=== PATIENT | male | born 1955 ===

== ENCOUNTER 2024-10-09 06:19 | Day surgery (SDC) | payer OTHER, SELFPAY | END 2024-10-09 08:24 | disposition home or self-care (01) | LOC: GI 06:19 | PROVIDERS: ATTENDING PHYSICIAN Internal Medicine Gastroenterology | DX: Z12.11 Encounter for screening for malignant neoplasm of colon (principal); D12.2 Benign neoplasm of ascending colon; K57.30 Diverticulosis of large intestine without perforation or abscess without bleeding; K64.8 Other hemorrhoids; Z86.0100 Personal history of colon polyps, unspecified | CPT/HCPCS: 45385; 88305 ==

== ENCOUNTER 2025-02-13 12:55 | Emergency (ER) | payer OTHER, SELFPAY ==
[2025-02-13 13:08] VITALS: BP 145/90
[2025-02-13 13:44] LABS: Hematocrit 42.6 % (39.0-52.0); Hemoglobin 14.3 g/dL (13.0-18.0); Mean Corp Hgb Conc. 33.6 g/dL (33.0-37.0); Mean Corpuscular Volume 85.7 fL (80.0-94.0); Nucleated Red Blood Cells % 0 % (-); Platelet Count 238 10^3/uL (130-400); Red Cell Dist. Width 12.8 % (11.5-14.5)
[2025-02-13 14:04] LABS: ALT (SGPT) 24 U/L (0-50); AST (SGOT) 23 U/L (17-59); Albumin 4.5 g/dl (3.5-5.0); Alkaline Phosphatase 58 U/L (38-126); Blood Urea Nitrogen 16 mg/dl (9-20); Calcium 9.3 mg/dl (8.4-10.2); Carbon Dioxide 25 mmol/L (22-30); Chloride 105 mmol/L (98-107); Glucose 98 mg/dl (70-99); Potassium 4.2 mmol/L (3.5-5.1); Sodium 138 mmol/L (135-145); Total Protein 6.7 g/dl (6.3-8.2); eGFR > 60.00
[2025-02-13 14:09] LABS: Troponin I < 0.012 ng/ml
[2025-02-13 15:30] VITALS: BP 158/91
--- NOTE | 2025-02-13 18:19 | ED.GENMED ---
History of Present Illness
General
Chief Complaint: Weakness
Source: patient
Exam Limitations: none
Time Seen by Provider: 02/13/25 17:49
Nursing documentation reviewed up to this point in time: agreed with
History of Present Illness
History of Present Illness:
Patient to the emergency department with complaint of pain to left axilla. States he noticed pain approximately 1 week ago. Reports that he is active and is currently participating in water aerobics, tennis. States pain is worse with movement.
Pain radiates to her left nipple. Describes pain as sharp. No associated N/V/diaphoresis. No associated shortness of breath. Denies headache dizziness or lightheadedness. He was evaluated by family practitioner earlier today and was advised to
come to the emergency department for further evaluation. He reports feeling fatigued. Denies fever/chills/recent illness, no cough
Past History
Past History
ED Past Medical History: HTN and Hypercholesterolemia
Review of Systems
Review of Systems
Allergies reviewed?: Yes
All Other Systems: ROS reviewed and negative except as documented in HPI and ROS
Constitutional: Reports no symptoms
EENT: Reports no symptoms
Respiratory: Reports no symptoms
Cardiac: Reports other (Pain to left axilla radiating to left nipple)
ABD/GI: Reports no symptoms
: Reports no symptoms
Musculoskeletal: Reports other (Pain to left axilla)
Skin: Reports no symptoms
Neurological: Reports no symptoms
Psychiatric: Reports no symptoms
Phy Exam
General Physical Exam
General Presentation: well appearing and no apparent distress
General age: appears stated age
General Skin: warm and dry
General Habitus: normal
General Mental: alert
Cardiovascular Exam
Cardiovascular Exam: regular rate/rhythm and no edema
Pulmonary Exam
Pulmonary Exam: lungs clear and no respiratory distress
Musculoskeletal Exam
Musculoskeletal Exam: full ROM, neuro vasc intact and other (Pain at left axilla. Pain is reproducible. No lymphadenopathy noted he has full range of motion to left upper extremity. No erythema or swelling noted)
Skin Exam
Skin Exam: normal color, warm/dry and no rash
Psychiatric Exam
Psychiatric Exam: normal mood/affect
Course
Orders/Labs/Results
Orders:
Orders
02/13/25 12:59
Electrocardiogram (*1) Urgent
Reason for Study: Chest Pain
EKG- Treatment ONCE
02/13/25 13:24
Complete Blood Count/With Diff Urgent
Comprehensive Metabolic Panel Urgent
Troponin I Urgent
02/13/25 13:24
02/13/25 13:24
Vital Signs
Initial and Last Documented VS:
Initial Vital Signs
Temp Pulse Resp BP Pulse Ox
98.4 F 70 20 145/90 98
02/13/25 13:08 02/13/25 13:08 02/13/25 13:08 02/13/25 13:08 02/13/25 13:08
Last Documented Vital Signs
Temp Pulse Resp BP Pulse Ox
97.9 F 63 15 158/91 97
02/13/25 15:30 02/13/25 17:00 02/13/25 16:50 02/13/25 15:30 02/13/25 18:20
*Pulse Oximetry
SaO2: 97
Oxygen Mode of Delivery: Room air
Patient hypoxic: no
*Critical Care Note
Total Time (30-74mins, 75-104mins- exclusive of procedures): Not Applicable
Update Note
Update Note:
Patient to the emergency department for evaluation of pain to left axilla radiating to the left nipple. Pain is reproducible. She has no associated shortness of breath nausea vomiting diaphoresis dizziness blurred vision. VSS. He remains
afebrile. Labs reviewed. No concerning findings. Troponin is negative. EKG NSR. Doubtful for ACS. He has a cardiology appointment scheduled on Wednesday and he is agreeable to keeping this planned appointment. He is discharged home given strict
instructions on signs and symptoms to return to the emergency department. He is agreeable to this plan.
ED Attending Note
-
Portions of this chart may have been created with voice recognition software.� Occasional wrong word or��sound alike� substitutions may have occurred due to the inherent limitations of voice recognition software.
Discharge Plan
Departure
Patient Disposition: Home (Routine Discharge)
Date of Disposition: 02/13/25
Time of Disposition: 18:12
Patient with high blood pressure during this ER visit?: No
Condition: Good
Covid-19: Not Applicable
Discharge Problem:
Left axillary pain
Instructions: BLOOD PRESSURE, Musculoskeletal Pain
Referrals:
Eron Hernandez DO [Family Provider, Family Practice]
Activity Restrictions/Additional Instructions:
Follow-up with your filbert grower on Wednesday as scheduled. Return to the emergency department immediately for any changes in/worsening of your symptoms
Interventions
Interventions:
*Risk Screen - Suicide Last Done: 02/13/25 13:08
*General Assessment Last Done: 02/13/25 13:08
*Neglect/Abuse Screening Last Done: 02/13/25 13:08
*ED- Fall Risk Assessment Last Done: 02/13/25 18:20
*ED COVID-19 Vaccine History Last Done: 02/13/25 17:14
*ED Influenza Vaccine History Last Done: 02/13/25 17:14
*Nursing Disposition Last Done: 02/13/25 18:20
ED- Cardiac Assessment Last Done: 02/13/25 17:51
ED- Neurological Assessment Last Done: 02/13/25 17:51
ED- Pulmonary Assessment Last Done: 02/13/25 17:51
Discharge Date and Time
Discharge Date/Time: 02/13/25 18:24
Print Language: JAPANESE
== END 2025-02-13 18:24 | disposition home or self-care (01) ==
LOC: EMR 12:55
PROVIDERS: Emergency Medicine; EMERGENCY PHYSICIAN Student in an Organized Health Care Education/Training Program; FAMILY PHYSICIAN Student in an Organized Health Care Education/Training Program
DX: M79.622 Pain in left upper arm (principal); I10 Essential (primary) hypertension; E78.00 Pure hypercholesterolemia, unspecified
CPT/HCPCS: 99284; 80053; 84484; 85025; 93005